=== PATIENT | female | born 1945 | race Caucasian/White ===

== ENCOUNTER 2017-04-23 09:31 | Emergency (ER) | payer OTHER ==
[~2017-04-23] VITALS: Ht 152.4 cm; Wt 82.0 kg
[2017-04-23 09:36] VITALS: BP 175/86; PULSE 95; RESP 18; TEMP 98.2; O2SAT 99
[2017-04-23 09:47] VITALS: BP 140/100; PULSE 92; RESP 20; O2SAT 96
[2017-04-23] MEDS ORDERED: MORPHINE SULFATE 4 MG/ML INJ IV PUSH ONE ×2 (10:00→12:45)
[2017-04-23] MEDS ORDERED: LEVO75TA3 PO (10:08)
[2017-04-23] MEDS ORDERED: NOVOLOGP2 SQ ×2 (10:08)
[2017-04-23] MEDS ORDERED: CARV3.12 PO (10:08)
[2017-04-23] MEDS ORDERED: ASPI-110 PO (10:08)
[2017-04-23] MEDS ORDERED: METF1000 PO (10:08)
[2017-04-23] MEDS ORDERED: OMEP40CA2 PO (10:08)
[2017-04-23] MEDS ORDERED: EMPA1TAB PO (10:08)
[2017-04-23] MEDS ORDERED: SIMV40TA PO (10:08)
[2017-04-23] MEDS ORDERED: LISI10TA3 PO (10:08)
[2017-04-23] MEDS ORDERED: CLOB0.0571 TOPICAL (10:09)
[2017-04-23 10:37] LABS: AUTOMATED NEUTROPHIL # 5.2 TH/MM3 (1.8-7.7); BASOPHIL # 0.1 TH/MM3 (0-0.2); BASOPHIL % 0.9 % (0.0-2.0); EOSINOPHIL # 0.2 TH/MM3 (0-0.4); EOSINOPHIL % 2.6 % (0.0-4.0); HEMATOCRIT 44.6 % (35.0-46.0); HEMO FLAGS DIFF FINAL; LYMPH % 23.5 % (9.0-44.0); LYMPHOCYTE # 1.9 TH/MM3 (1.0-4.8); MEAN CELL VOLUME 87.7 FL (80.0-100.0); MEAN CORPUSCULAR HEMOGLOBIN 28.1 PG (27.0-34.0); MEAN CORPUSCULAR HGB CONC 32.1 % (32.0-36.0); MONO % 6.9 % (0.0-8.0); NEUT % 66.1 % (16.0-70.0); PLATELET COUNT 201 TH/MM3 (150-450); RED BLOOD COUNT 5.08 MIL/MM3 (4.00-5.30); RED CELL DISTRIBUTION WIDTH 13.8 % (11.6-17.2); WHITE BLOOD COUNT 7.9 TH/MM3 (4.0-11.0)
[2017-04-23 10:46] LABS: APTT (PATIENT) 24.7 SEC (24.3-30.1); INTERNATIONAL NORMALIZED RATIO 0.9 RATIO; PROTHROMBIN TIME - PATIENT 9.6 SEC (9.8-11.6)
[2017-04-23 10:54] LABS: ANION GAP 5 MEQ/L (5-15); AST (GOT) 12 U/L (15-37); BICARBONATE 26.6 MEQ/L (21.0-32.0); BLOOD UREA NITROGEN 27 MG/DL (7-18); CHLORIDE 111 MEQ/L (98-107); GLOMERULAR FILTRATION RATE 68 ML/MIN (>89); SODIUM (NA) 143 MEQ/L (136-145)
[2017-04-23 10:55] LABS: ALT (GPT) 23 U/L (10-53)
[2017-04-23 10:57] LABS: ALKALINE PHOSPHATASE 93 U/L (45-117); TOTAL BILIRUBIN ADULT 0.2 MG/DL (0.2-1.0)
--- NOTE | 2017-04-23 11:25 | RADRPT ---
EXAM DATE/TIME: 04/23/2017 10:26 [facility] COMPARISON: No previous studies available for comparison. INDICATIONS : Vaginal bleeding. MEDICAL HISTORY : Hypothyroidism. Hypertension. Hypercholesterolemia. Pelvic pain. Diabetes. SURGICAL HISTORY : Hysterectomy. ENCOUNTER: Initial ACUITY: 2 months PAIN SCORE: 7/10 LOCATION: Bilateral pelvis MEASUREMENTS: UTERUS: Surgically absent RIGHT OVARY: Non visualized LEFT OVARY: Non visualized FINDINGS: UTERUS: Surgically absent. RIGHT OVARY: Not visualized. No adnexal abnormality is seen. LEFT OVARY: Not visualized. No adnexal abnormality is seen. MISCELLANEOUS: No free fluid. CONCLUSION: No abnormality is identified within the pelvis in this patient post hysterectomy. Deandre Osman MD on April 23, 2017 at 11:22 Board Certified Radiologist. This report was verified electronically.
--- NOTE | 2017-04-23 13:35 | PD ---
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 She says that she changed about a pad an hour change 6 pads overnight. She says it was coming from both her vagina and her rectum. She also is having a lot of abdominal discomfort in the lower abdomen, constant, moderate that's been going on for 2 months. She went to see Dr. Blanc regarding some of her symptoms and she was started on a steroid topical cream. She also has had a hysterectomy in the past. She thinks she may be bleeding from her ovaries and think she might need them out.. History was obtained mostly via a friend and a live american sign language teacher. PFSH Past Medical History High Cholesterol: Yes Diabetes: Yes Patient Takes Glucophage: Yes Diminished Hearing: Yes (DEAF SIGN LANGUAGE ) Hypertension: Yes Thyroid Disease: Yes (HYPO ) Tetanus Vaccination: Unknown Past Surgical History Surgical History: No Previous Surgery Social History Alcohol Use: No Tobacco Use: No Substance Use: No Allergies-Medications (Allergen,Severity, Reaction): Coded Allergies: Penicillin (Verified Allergy, Unknown, 04/23/17) Reported Meds & Prescriptions Reported Meds & Active Scripts Active Reported Clobetasol Emollient Topical 0.05% Cream 1 Applic TOPICAL DAILY Novolog Inj (Insulin Aspart) 1,000 Unit/10 Ml Vial 70 Units SQ HS Novolog Inj (Insulin Aspart) 1,000 Unit/10 Ml Vial 15 Units SQ TIDAC Omeprazole 40 Mg Cap 40 Mg PO DAILY Aspirin 81 (Aspirin) 81 Mg Tabdr 81 Mg PO DAILY Levothyroxine (Levothyroxine Sodium) 75 Mcg Tab 75 Mcg PO DAILY Carvedilol 3.125 Mg Tab 3.125 Mg PO BID Jardiance (Empagliflozin) 10 Mg Tab 10 Mg PO DAILY Simvastatin 40 Mg Tab 40 Mg PO HS Lisinopril 10 Mg Tab 10 Mg PO DAILY Metformin (Metformin HCl) 1,000 Mg Tab 1,000 Mg PO BIDPC With meals Review of Systems Except as stated in HPI: all other systems reviewed are Neg Physical Exam Narrative GENERAL:Well appearing, no acute distress SKIN: Focused skin assessment warm and dry. HEAD: Atraumatic. Normocephalic. EYES: Pupils equal and round. No injection or drainage. ENT: Moist mucous membranes NECK: Trachea midline. CARDIOVASCULAR: Regular rate and rhythm. No murmur appreciated. RESPIRATORY: Clear to auscultation. Breath sounds equal bilaterally. GASTROINTESTINAL: Abdomen soft, tender to palpation diffusely worse in the lower abdomen. no blood with digital rectal exam. PHYSICAL THERAPY COORDINATOR: Vulva and labia are erythematous with some white discharge, very tender and painful with vaginal exam with no obvious lesions. No bleeding. MUSCULOSKELETAL: No obvious deformities. NEUROLOGICAL: Awake and alert. No obvious cranial nerve deficits. Moving all extremities. PSYCHIATRIC: Appropriate mood and affect; insight and judgment normal. Data Data Last Documented VS Vital Signs Date Time Temp Pulse Resp B/P Pulse Ox O2 Delivery O2 Flow Rate FiO2 04/23/17 10:35 20 04/23/17 09:47 92 140/100 96 04/23/17 09:36 98.2 Orders Complete Blood Count With Diff (04/23/17 09:57) Comprehensive Metabolic Panel (04/23/17 09:57) ^ Insert Iv (04/23/17 09:57) Prothrombin Time / Inr (Pt) (04/23/17 09:57) Act Partial Throm Time (Ptt) (04/23/17 09:57) Us Pelvis Comp W Transvaginal (04/23/17 ) Morphine Inj (Morphine Inj) (04/23/17 10:00) Ct Abd/Pel W Iv Contrast(Rout) (04/23/17 ) Morphine Inj (Morphine Inj) (04/23/17 12:45) Urinalysis - C+S If Indicated (04/23/17 12:43) Labs Laboratory Tests Test 04/23/17 10:25 White Blood Count 7.9 TH/MM3 Red Blood Count 5.08 MIL/MM3 Hemoglobin 14.3 GM/DL Hematocrit 44.6 % Mean Corpuscular Volume 87.7 FL Mean Corpuscular Hemoglobin 28.1 PG Mean Corpuscular Hemoglobin 32.1 % Concent Red Cell Distribution Width 13.8 % Platelet Count 201 TH/MM3 Mean Platelet Volume 8.9 FL Neutrophils (%) (Auto) 66.1 % Lymphocytes (%) (Auto) 23.5 % Monocytes (%) (Auto) 6.9 % Eosinophils (%) (Auto) 2.6 % Basophils (%) (Auto) 0.9 % Neutrophils # (Auto) 5.2 TH/MM3 Lymphocytes # (Auto) 1.9 TH/MM3 Monocytes # (Auto) 0.5 TH/MM3 Eosinophils # (Auto) 0.2 TH/MM3 Basophils # (Auto) 0.1 TH/MM3 CBC Comment DIFF FINAL Differential Comment Prothrombin Time 9.6 SEC Prothromb Time International 0.9 RATIO Ratio Activated Partial 24.7 SEC Thromboplast Time Sodium Level 143 MEQ/L Potassium Level 4.0 MEQ/L Chloride Level 111 MEQ/L Carbon Dioxide Level 26.6 MEQ/L Anion Gap 5 MEQ/L Blood Urea Nitrogen 27 MG/DL Creatinine 0.83 MG/DL Estimat Glomerular Filtration 68 ML/MIN Rate Random Glucose 54 MG/DL Calcium Level 9.0 MG/DL Total Bilirubin 0.2 MG/DL Aspartate Amino Transf 12 U/L (AST/SGOT) Alanine Aminotransferase 23 U/L (ALT/SGPT) Alkaline Phosphatase 93 U/L Total Protein 7.1 GM/DL Albumin 3.7 GM/DL MDM Medical Decision Making Medical Screen Exam Complete: Yes Emergency Medical Condition: Yes Interpretation(s) Afebrile, tachycardic, hypertensive No leukocytosis Electrolytes are reassuring Last 24 hours Impressions Pelvis Ultrasound 04/23/17 0000 Signed Impressions: Service Date/Time: Monday, April 23, 2017 10:26 - CONCLUSION: No abnormality is identified within the pelvis in this patient post hysterectomy. Deandre Osman MD Differential Diagnosis Malignancy, vaginal tear, vaginitis yeast infection, colitis, diverticulitis Narrative Course This is a 71-year-old female who is hearing impaired who presents to the emergency department with lower abdominal discomfort and vaginal bleeding that' s been going on since yesterday. She was placed on a monitor and an IV was established. Ultrasound and CT abdomen and pelvis were performed both of which were unremarkable. Pelvic exam demonstrates erythema and some white discharge in the vagina consistent with a yeast infection and probable vaginal atrophy. Hemoccult was negative and there is no evidence of blood in the rectum or in the vagina. I suspect she has irritation of her vagina that led to some tearing and perhaps she had some bleeding overnight but I don't see any evidence of trauma here. I think she is safe to follow-up with her outpatient prepress specialist. She was given a dose of fluconazole and advised to follow-up with her pelts skinner regarding chronic atrophy. Diagnosis Primary Impression: Yeast infection Additional Impression: Vaginal atrophy Patient Instructions: General Instructions Additional Instructions: If you develop severe or worsening abdominal pain, fever>100.4, persistent vomiting or inability to eat or drink return to the emergency department immediately. Follow up with Dr. Blanc as an outpatient as soon as possible. Disposition: 01 DISCHARGE HOME Condition: Stable Maki Brown MD Apr 23, 2017 13:35
--- NOTE | 2017-04-23 13:55 | RADRPT ---
EXAM DATE/TIME: 04/23/2017 13:07 [facility] COMPARISON: No previous studies available for comparison. INDICATIONS : Lower abdomen pain and vaginal bleeding for nine months. IV CONTRAST: 97 cc Omnipaque 350 (iohexol) IV ORAL CONTRAST: No oral contrast ingested. RADIATION DOSE: 11.25 CTDIvol (mGy) MEDICAL HISTORY : Hypothyroidism. Hypertension. SURGICAL HISTORY : partial hysterectomy ENCOUNTER: Initial ACUITY: 7 - 11 months PAIN SCALE: 4/10 LOCATION: Bilateral lower quadrant TECHNIQUE: Volumetric scanning of the abdomen and pelvis was performed. Using automated exposure control and ad justment of the mA and/or kV according to patient size, radiation dose was kept as low as reasonably achievable to obtain optimal diagnostic quality images. DICOM format image data is available electro nically for review and comparison. FINDINGS: LOWER LUNGS: The visualized lower lungs are clear. LIVER: Homogeneous density without lesion. There is no dilation of the biliary tree. No calcified gallston es. SPLEEN: Normal size without lesion. PANCREAS: Within normal limits. KIDNEYS: Normal in size and shape. There is no mass, stone or hydronephrosis. ADRENAL GLANDS: Within normal limits. VASCULAR: There is no aortic aneurysm. BOWEL/MESENTERY: Moderate diverticulosis seen in the sigmoid colon and I don't see any acute inflammatory changes. No obstruction. Appendix is normal. ABDOMINAL WALL: Within normal limits. RETROPERITONEUM: There is no lymphadenopathy. BLADDER: No wall thickening or mass. REPRODUCTIVE: Previous hysterectomy. Ovaries appear normal for age. The vagina is grossly unremarkable. INGUINAL: There is no lymphadenopathy or hernia. MUSCULOSKELETAL: No acute musculoskeletal abnormality demonstrated. CONCLUSION: 1. No obstruction or acute inflammatory changes are demonstrated. 2. Moderate sigmoid colon diverticulosis but no diverticulitis. 3. Normal appendix. 4. Previous hysterectomy. No abnormalities seen of the vagina or either ovary. No free fluid. Deandre Ventura MD on April 23, 2017 at 13:49 Board Certified Radiologist. This report was verified electronically.
[2017-04-23 13:58] LABS: BLOOD, URINE TRACE (NEG); COMMENT (UR) CULT NOT INDICATED; CULTURE IF INDICATED CULT NOT INDICATED; GLUCOSE,URINE 1000 mg/dL (NEG); KETONE, URINE NEG (NEG); NITRITE,URINE NEG (NEG); PH, URINE 5.5 (5.0-8.5); SQUAMOUS EPITHELIAL CELL URINE <1 /hpf (0-5); URINE COLOR YELLOW (YELLW/STRAW)
[2017-04-23] MEDS ORDERED: IOHEXOL 350 MG/ML 10 ML VIAL (for RAD DIAG) IV ONE (14:00)
[2017-04-23] MEDS ORDERED: TRAM50TA PO (14:02)
[2017-04-23] MEDS ORDERED: FLUCONAZOLE 100 MG TAB PO ONE (14:15)
[2017-04-23 14:35] VITALS: BP 135/67; PULSE 88; RESP 18; O2SAT 99
== END 2017-04-23 14:36 | disposition home or self-care (01) ==
LOC: NEPE 09:31
DX: B37.9 Candidiasis, unspecified (principal); N95.2 Postmenopausal atrophic vaginitis; E03.9 Hypothyroidism, unspecified; E11.9 Type 2 diabetes mellitus without complications; E78.00 Pure hypercholesterolemia, unspecified; H91.90 Unspecified hearing loss, unspecified ear; I10 Essential (primary) hypertension; Z79.4 Long term (current) use of insulin; Z79.82 Long term (current) use of aspirin; Z88.0 Allergy status to penicillin; Z90.710 Acquired absence of both cervix and uterus
CPT/HCPCS: 74177; 76830; 76856; 80053; 81001; 85025; 85610; 85730; 96374; 96376; 99285; J2270; Q9967